=== PATIENT | male | born 1940 | race Caucasian/White ===

== ENCOUNTER 2016-09-21 12:36 | Emergency (ER) | payer OTHER ==
[~2016-09-21] VITALS: Ht 167.6 cm; Wt 89.8 kg
--- NOTE | 2016-09-21 13:20 | NUR ---
PT TAKEN TO CT SCAN VIA JOHNNY
--- NOTE | 2016-09-21 13:20 | NUR ---
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
[2016-09-21 13:21] LABS: BASOPHILS # (AUTO) 0.2 /CMM (0.0-0.2); BASOPHILS % (AUTO) 2.2 % (0.0-2.0); EOSINOPHILS # (AUTO) 0.1 /CMM (0.0-0.7); EOSINOPHILS % (AUTO) 0.6 % (0.0-6.0); HEMATOCRIT 38 % (39-51); HEMOGLOBIN 12.9 g/dL (13.5-17.5); LYMPHOCYTES # (AUTO) 1.9 /CMM (0.8-4.8); LYMPHOCYTES % (AUTO) 18.2 % (20.0-44.0); MEAN CORPUSCULAR HEMOGLOBIN 33 PG (26.0-33.0); MEAN CORPUSCULAR HGB CONC 34 g/dl (31.0-36.0); MEAN CORPUSCULAR VOLUME 97 fL (80-96); MONOCYTES # (AUTO) 0.3 /CMM (0.1-1.30); MONOCYTES % (AUTO) 2.9 % (2.0-12.0); NEUTROPHILS # (AUTO) 7.9 /CMM (1.8-8.9); NEUTROPHILS % (AUTO) 76.1 % (43.0-81.0); PLATELET COUNT (AUTO) 118 /CMM (150-450); RDW COEFFICIENT OF VARIATION 13.5 (11.5-15.0); RED BLOOD CELL COUNT(AUTO) 3.96 MIL/uL (4.5-6.0); WHITE BLOOD COUNT (AUTO) 10.4 K/uL (4.3-11.0)
[2016-09-21 13:34] LABS: CALCIUM, SERUM 8.7 mg/dL (8.5-10.1); CARBON DIOXIDE 29 mmol/L (21-32); CHLORIDE 104 mmol/L (98-107); CREATININE 0.7 mg/dL (0.6-1.3); GLUCOSE 114 mg/dL (74-106); POTASSIUM 4.1 mmol/L (3.5-5.1); SODIUM SERUM 138 mmol/L (136-145); UREA NITROGEN, BLOOD 12 mg/dL (7-18)
--- NOTE | 2016-09-21 13:38 | NUR ---
XRAY AT BEDSIDE
[2016-09-21 13:40] LABS: INR 1.05 (0.87-1.13); PROTHROMBIN TIME 10.9 SECS (9.5-12.7)
[2016-09-21 13:43] LABS: TROPONIN I < 0.017 ng/mL (0.00-0.056)
--- NOTE | 2016-09-21 14:25 | NUR ---
CALLED RAMÓN QUEVEDO @[phone]
[2016-09-21] MEDS ORDERED: ASPIRIN 325 MG TABLET ONE (14:59)
[2016-09-21] MEDS ORDERED: ASPIRIN 325 MG TABLET PO ONE (15:00)
--- NOTE | 2016-09-21 15:31 | NUR ---
CALL FROM [facility], MARYLOU RIVERS, ACCEPTED BY DR MICHEL AT [facility] [place], REPORT TO BE CALLED TO [phone]
--- NOTE | 2016-09-21 16:00 | NUR ---
CALLED [facility] TO GIVE REPORT WAITING IN LINE FOR 10 MINS NO ANSWER.
--- NOTE | 2016-09-21 16:30 | NUR ---
CALLED AGAIN WAITED FOR 10 MINS NO ONE [facility]INE FOR REPORT AT [place].
--- NOTE | 2016-09-21 16:33 | NUR ---
GAVE REPORT TO AMBULANCE TRANSFER TO [facility] .
--- NOTE | 2016-09-21 17:28 | NUR ---
GAVE REPORT TO BROOKLYNN RIVERS [facility]
[2016-09-21 17:29] VITALS: BP 131/83
== END 2016-09-21 17:30 | disposition short-term general hospital (02) ==
LOC: ER 12:38
DX: I63.9 Cerebral infarction, unspecified (principal); I10 Essential (primary) hypertension; E11.9 Type 2 diabetes mellitus without complications
CPT/HCPCS: 36415; 70450-TC; 71010-TC; 80048-TC; 82962-TC; 84484-TC; 85025-TC; 85730-TC; A4606; Z7610